=== PATIENT | male | born 1985 | race Caucasian/White ===

== ENCOUNTER 2017-02-25 10:23 | Emergency (ER) | payer OTHER ==
[2017-02-25 10:30] VITALS: BP 137/71; BMI 29.8
[2017-02-25] MEDS ORDERED: TORADOL 60 MG VIAL IM ONE (10:37)
[2017-02-25] MEDS ORDERED: NORFLEX INJ IM ONE (10:37)
--- NOTE | 2017-02-25 10:38 | DR.MBACK ---
HPI - Time Seen Time seen: 10:25 - PCP Primary Care Physician: SANDY - HPI Comment HPI Comment: DENIES TRAUMA. HOME MEDS DID NOT HELP PAIN. - Complaint Chief Complaint Doctors Comments: LOWER BACK PAIN RADIATING TO BOTH HIPS UPON WAKING UP THIS AM. HISTORY LUMBAR DISC DISEASE. Chief Complaint:: PATIENT C/O LOWER BACK PAIN THAT RADIATES TO BILATERAL HIPS. STATING "I JUST WOKE UP LIKE THIS." Self Treatment fo Chief Complaint: TRAMADOL, GABAPENTIN - Reviewed Nurses Notes Review: Yes - Source History Provided: Patient - Mode of Arrival Mode of Arrival: Wheelchair - Timing Onset of Chief Complaint: 02/25/17 - Duration Duration: Constant Duration: Hours - Location Back Pain Location: Left, Right, Lower, BACK Radiation To: Right, Left, Thigh (AND HIPS) - Severity Severity: Moderate - Quality Quality: Aching, Sharp - Context Onset: Spontaneous Circumstance: Unknown History of: Chronic Back Pain - Modifying Factors Worsened By: None (PATIENT IS A [employer] AND [employer].) - Associated Signs and Symptoms Back Pain Symptoms: None, OTHER (PAIN RADIATES TO BOTH HIPS) Numbness: None Weakness: None PMH - PMH Past Medical History: Yes Past Medical History Comment: DDD, "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" Past Surgical History: Yes Surgical History: Ortho Surgery Past Surgical History Comment: KNEE SURGERY - Family History History of Family Medical Conditions: Yes Family Medical History: Cancer, Heart Failure - Social History Does patient currently use any type of tobacco product: Yes Have you used tobacco products in the last 12 months: Yes Type of Tobacco Use: Smokeless Does any household member use tobacco: No Alcohol Use: Rarely Do you use any recreational Drugs:: No Lives Where: Home - infectious screening In the last 2 months have you had wt loss of >10#?: NO Have you had fever, night sweats or hemotysis?: No Have you traveled outside the country in the last 6 months?: No Isolation: Standard ROS - Review of Systems Constitutional: No Symptoms Reported Eyes: No Symptoms Reported ENTM: No Symptoms Reported Respiratoy: No Symptoms Reported Cardiovascular: No Symptoms Reported Gastrointestinal/Abdominal: No Symptoms Reported Genitourinary: No Symptoms Reported Neurological: No Symptoms Reported Musculoskeletal: Back Pain, Back Integumentary: No Symptoms Reported Hematologic/Lymphatic: No Symptoms Reported Endocrine: No Symptoms Reported All Other Systems: Reviewed and Negative PE - Vital Signs Vitals: Temperature 98.4 F Pulse Rate 103 Respiratory Rate 18 Blood Pressure 137/71 O2 Sat by Pulse Oximetry 98 - General Limitations: No Limitations General Appearance: Alert - Head Head Exam: Normal Inspection - Eyes Eye exam: Normal Appearance - ENT ENT Exam: Normal Exam - Chest Chest Inspection: Normal Inspection - Respiratory Respiratory Exam: Normal Lung Sounds Bilat Respiratory Exam: Bilateral Clear to Auscultation - Cardiovascular Cardiovascular Exam: Regular Rate - Abdominal Exam Abdominal Exam: Normal Inspection - Rectal Rectal Exam: Deferred - Genitourinary Exam: Male: Deferred - Extremities Extremities Exam: Normal Inspection - Back Back Exam: Muscle Spasm (LOWER BACK), Paraspinal Tenderness (LOWER BACK), Vertebral Tenderness (LOWER BACK.) - Neurological Neurological Exam: Alert, Oriented X3 - Psychiatric Psychiatric Exam: Normal Affect, Normal Mood - Skin Skin Exam: Normal Color MDM - Differential Diagnosis Differential Diagnosis: DJD, Musculoskeletal Pain, Strain Course - Treatment Treatment: SEE ORDERS. - Education/Counseling Education/Counseling: Patient, Education Educated On: Diagnosis, Needs for Follow Up ROR - XRAY XRAY Interpreted by: Radiologist XRAY Findings: REPORT DISCUSS WITH PATIENT. - Diagnosis Discharge Problem: Back spasm Back strain Qualifiers: Encounter type: initial encounter Qualified Code(s): S39.012A - Strain of muscle, fascia and tendon of lower back, initial encounter - Discharge Plan Disposition: 01 HOME, SELF-CARE Condition: Stable Prescriptions: Acetaminophen with Codeine [Tylenol/Codeine #3 300-30 mg] 1 tab PO Q4-6H PRN # 15 tab PRN Reason: Pain Cyclobenzaprine HCl [FLEXERIL 10 MG *] 10 mg PO TID #20 tab Ibuprofen [MOTRIN TAB 800 MG *] 800 mg PO BID PRN #20 tab PRN Reason: Pain/Inflammation - Follow ups/Referrals Follow ups/Referrals: MARINA DELGADO [Primary Care Provider] - 3 days - Instructions Instructions: Musculoskeletal Pain, Back Pain, Adult, [id number] Additional Instructions: RETURN TO ED IF WORSE.
[2017-02-25] MEDS ORDERED: NORFLEX INJ ONE (10:39)
[2017-02-25] MEDS ORDERED: TORADOL 60 MG VIAL ONE (10:39)
--- NOTE | 2017-02-25 11:46 | RAD ---
Lumbar spine three views Indication: Back pain. No trauma. Findings: There is mild facet arthropathy caudally with minimal disc degenerative change L5-S1. Poste rior infused elements at L5 noted. No cortical lucency or malalignment seen. Impression: Minimal degenerative change without acute osseous abnormality. Reported By:
== END 2017-02-25 12:34 | disposition home or self-care (01) ==
LOC: ER 10:36
DX: S39.012A Strain of muscle, fascia and tendon of lower back, initial encounter (principal); M62.838 Other muscle spasm; Y33.XXXA Other specified events, undetermined intent, initial encounter; Y92.9 Unspecified place or not applicable
CPT/HCPCS: 72100; 96372; 99282; 99283; J1885; J2360